=== PATIENT | female | born 1990 | race African-American/Black ===

== ENCOUNTER 2016-08-03 13:26 | Emergency (ER) | payer MEDICAID, OTHER ==
[~2016-08-03] VITALS: Ht 165.1 cm; Wt 57.2 kg
[2016-08-03] MEDS ORDERED: NAPR220C15 PO (13:39)
--- NOTE | 2016-08-03 13:52 | NUR ---
PT IS IN ROOM #2B. DR BRANTLEY EVALUATED THE PT.
[2016-08-03] MEDS ORDERED: IBUPROFEN 800 MG TABLET PO ONE (14:30)
[2016-08-03] MEDS ORDERED: IBUPROFEN 800 MG TABLET ONE (14:44)
[2016-08-03 15:15] LABS: *URINE HCG, QUAL NEGATIVE (NEGATIVE)
--- NOTE | 2016-08-03 16:08 | NUR ---
PT WAS D/C TO HOME. D/C INSTRUCTIONS GIVEN TO THE PT.
[2016-08-03 16:09] VITALS: BP 125/73
== END 2016-08-03 16:10 | disposition home or self-care (01) ==
LOC: ER 13:26
DX: M43.6 Torticollis (principal); F10.20 Alcohol dependence, uncomplicated
CPT/HCPCS: 72125; 84703; 99284; A4663

== ENCOUNTER 2017-04-01 10:33 | Emergency (ER) | payer OTHER ==
[~2017-04-01] VITALS: Ht 165.1 cm; Wt 54.4 kg
[~2017-04-01 10:33] MED LIST: NAPR220C15 PO
[2017-04-01 12:12] LABS: BASOPHILS % (AUTO) 0.3 % (0.0-2.0); EOSINOPHILS % (AUTO) 0.2 % (0.0-7.0); HEMATOCRIT 40.4 % (31.2-41.9); HEMOGLOBIN 13.5 g/dL (10.9-14.3); LYMPHOCYTES # (AUTO) 1.1 K/uL (20.0-40.0); LYMPHOCYTES % (AUTO) 27.6 % (20.5-51.5); MEAN CORPUSCULAR HEMOGLOBIN 29.6 uug (24.7-32.8); MEAN CORPUSCULAR HGB CONC 33 g/dL (32.3-35.6); MEAN CORPUSCULAR VOLUME 88.8 fL (75.5-95.3); MONOCYTES # (AUTO) 0.3 K/uL (2.0-10.0); MONOCYTES % (AUTO) 6.7 % (0.0-11.0); NEUTROPHILS # (AUTO) 2.7 K/uL (1.8-8.9); NEUTROPHILS % (AUTO) 65.2 % (38.5-71.5); PLATELET COUNT (AUTO) 309 K/uL (179-408); RED BLOOD CELL COUNT(AUTO) 4.55 MIL/uL (3.63-4.92); WHITE BLOOD COUNT (AUTO) 4.1 K/uL (3.8-11.8)
[2017-04-01 12:20] LABS: *BILIRUBIN,URIN NEGATIVE (NEGATIVE); *BLOOD, URINE NEGATIVE (NEGATIVE); *CLARITY,URINE CLEAR (CLEAR); *COLOR,URINE YELLOW (YELLOW); *KETONES,URINE 1+ (NEGATIVE); *PROTEIN,URINE NEGATIVE (NEGATIVE); *UROBILINOGEN,URINE 0.2 E.U./dl (NORMAL); LEUKOCYTE ESTERASE ,URINE 2+ (NEGATIVE); NITRITE, URINE NEGATIVE (NEGATIVE); UGLUCOSE NEGATIVE (NEGATIVE)
[2017-04-01 12:22] LABS: POTASSIUM 3.6 mmol/L (3.5-5.1)
[2017-04-01 12:25] LABS: IRON, SERUM 92 ug/dL (50-175)
[2017-04-01 12:28] LABS: BILIRUBIN,DIRECT 0.1 mg/dL (0.0-0.2); BILIRUBIN,TOTAL 0.4 mg/dL (0.2-1.0); TOTAL PROTEIN, SERUM 7.4 g/dL (6.4-8.2)
[2017-04-01 12:39] LABS: BACTERIA,URINE NONE SEEN /HPF (NONE SEEN); RBC,URINE 0-3 /HPF (0-3); SQUAMOUS EPITHELIAL CELL,UR FEW /HPF (NONE SEEN)
--- NOTE | 2017-04-01 13:04 | NUR ---
Patient discharged to home in stable conditon. Written and verbal after care instructions given to patient. Patient verbalizes understanding of instructions. Patient ate a sandwich w/ juice while in ER, NAD.
== END 2017-04-01 13:05 | disposition home or self-care (01) ==
LOC: ER 10:33
DX: L30.9 Dermatitis, unspecified (principal); N89.8 Other specified noninflammatory disorders of vagina
CPT/HCPCS: 36415; 83550; 84703; 85025; 87077; 87086; 87491; A4663

== ENCOUNTER 2017-10-17 19:39 | Emergency (ER) | payer OTHER ==
[~2017-10-17] VITALS: Ht 165.1 cm; Wt 59.0 kg
--- NOTE | 2017-10-17 20:15 | NUR ---
DR. BRANTLEY AT BEDSIDE FOR MSE.
[2017-10-17 21:00] LABS: BASOPHILS % (AUTO) 0.5 % (0.0-2.0); EOSINOPHILS % (AUTO) 0.4 % (0.0-7.0); HEMATOCRIT 38.6 % (31.2-41.9); HEMOGLOBIN 12.8 g/dL (10.9-14.3); LYMPHOCYTES # (AUTO) 1.5 K/uL (20.0-40.0); LYMPHOCYTES % (AUTO) 39.6 % (20.5-51.5); MEAN CORPUSCULAR HEMOGLOBIN 29.5 uug (24.7-32.8); MEAN CORPUSCULAR HGB CONC 33 g/dL (32.3-35.6); MEAN CORPUSCULAR VOLUME 88.7 fL (75.5-95.3); MONOCYTES # (AUTO) 0.4 K/uL (2.0-10.0); MONOCYTES % (AUTO) 9.8 % (0.0-11.0); NEUTROPHILS # (AUTO) 1.9 K/uL (1.8-8.9); NEUTROPHILS % (AUTO) 49.7 % (38.5-71.5); PLATELET COUNT (AUTO) 320 K/uL (179-408); RED BLOOD CELL COUNT(AUTO) 4.35 MIL/uL (3.63-4.92); WHITE BLOOD COUNT (AUTO) 3.9 K/uL (3.8-11.8)
[2017-10-17 21:03] LABS: POTASSIUM 3.6 mmol/L (3.5-5.1)
[2017-10-17 21:09] LABS: BILIRUBIN,DIRECT 0.1 mg/dL (0.0-0.2); BILIRUBIN,TOTAL 0.3 mg/dL (0.2-1.0); TOTAL PROTEIN, SERUM 7.6 g/dL (6.4-8.2)
[2017-10-17] MEDS ORDERED: IV NORMAL SALINE 1000 ML BAG IV ONE (22:30)
--- NOTE | 2017-10-17 22:30 | NUR ---
CONTRAST ADMINISTRATION SIGNED BY PATIENT.
[2017-10-17] MEDS ORDERED: IV NORMAL SALINE 100 ML ONE (22:44)
[2017-10-17] MEDS ORDERED: NORMAL SALINE FLUSH 10 ML DISP.SYRIN ONE (22:44)
[2017-10-17] MEDS ORDERED: SWABABLE VALVE TRANSFER SET EA MC ONE (22:44)
[2017-10-17] MEDS ORDERED: IOHEXOL 300MG/ML 100 ML INFUS..BTL ONE (22:44)
[2017-10-18] MEDS ORDERED: predniSONE 50 MG TABLET ONE (01:10)
[2017-10-18] MEDS ORDERED: predniSONE 50 MG TABLET PO ONE (01:15)
--- NOTE | 2017-10-18 01:16 | NUR ---
Patient discharged to home in stable conditon. Written and verbal after care instructions given. Patient verbalizes understanding of instructions. patient left with stable gait.
[2017-10-18 01:17] VITALS: BP 111/65
== END 2017-10-18 01:17 | disposition home or self-care (01) ==
LOC: ER 19:40
DX: J40 Bronchitis, not specified as acute or chronic (principal)
CPT/HCPCS: 36415; 70491; 71045; 71260; 80048; 80076; 84484; 84703; 85025; 85730; 93005; 99285; A4663; J3490 ×2; J7030; J7050; J7512; Q9967; 70030-TC